=== PATIENT | male | born 1985 | race Caucasian/White ===

== ENCOUNTER 2024-07-12 08:02 | Outpatient (CLI) | payer OTHER, SELFPAY ==
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
== END 2024-07-12 08:03 | disposition home or self-care (01) ==
PROVIDERS: PCP Family Medicine; Visit Provider Family Medicine
DX: Z00.00 Encounter for general adult medical examination without abnormal findings (principal); E11.9 Type 2 diabetes mellitus without complications; Z13.6 Encounter for screening for cardiovascular disorders
CPT/HCPCS: 80053; 80061; 82043; 82570

== ENCOUNTER 2024-11-07 10:05 | Outpatient (CLI) | payer OTHER, SELFPAY | END 2024-11-07 10:06 | disposition home or self-care (01) | LOC: MRI 10:06 | PROVIDERS: PCP Internal Medicine; Visit Provider Internal Medicine | DX: M54.50 Low back pain, unspecified (principal) | CPT/HCPCS: 72148 ==